=== PATIENT | female | born 1970 | race Caucasian/White ===

== ENCOUNTER 2018-02-22 10:37 | Emergency (ER) | payer MEDICAID ==
[~2018-02-22] VITALS: Ht 167.6 cm; Wt 100.1 kg
[2018-02-22 10:47] VITALS: BP 145/84; PULSE 88; RESP 16; TEMP 98.8; O2SAT 96
[2018-02-22] MEDS ORDERED: OMEP40CA2 PO (11:09)
[2018-02-22] MEDS ORDERED: AMIT10TA6 PO (11:09)
[2018-02-22] MEDS ORDERED: BENZ100 PO (12:06)
--- NOTE | 2018-02-22 12:11 | PD ---
HPI Chief Complaint: Cold / Flu Symptoms Time Seen by Provider: 11:38 Travel History International Travel<30 days: No Contact w/Intl Traveler<30days: No Traveled to known affect area: No History of Present Illness HPI 47-year-old female presents to the emergency room for evaluation of cold symptoms that started yesterday. Patient is on vacation from [place]. States she woke up with right ear pain, sore throat, cough, congestion, laryngitis, and body aches. Ear pain is the most severe. States she has fullness and decreased hearing but no drainage. She has not taken anything for her symptoms. No fever, chills, nausea, vomiting. She has history of hypertension. [facility] Past Medical History Asthma: Yes Anxiety: Yes GERD: Yes Respiratory: Yes (asthma) Tetanus Vaccination: > 5 Years Influenza Vaccination: Yes ?: Not LMP: 01/28/18 Past Surgical History Section: Yes Cholecystectomy: Yes Joint Replacement: Yes (KNEE) Tonsillectomy: Yes Social History Alcohol Use: Yes (rare) Tobacco Use: No Substance Use: No Allergies-Medications (Allergen,Severity, Reaction): Coded Allergies: acetaminophen (Verified Allergy, Severe, Itching, 02/22/18) hydrocodone (Verified Allergy, Severe, Itching, 02/22/18) Penicillins (Verified Allergy, Intermediate, skin rash, 02/22/18) Sulfa (Sulfonamide Antibiotics) (Verified Allergy, Intermediate, skin rash , 02/22/18) Reported Meds & Prescriptions Reported Meds & Active Scripts Active Tessalon Perles (Benzonatate) 100 Mg Cap 100 Mg PO TID PRN Reported Amitriptyline (Amitriptyline HCl) 10 Mg Tab Unknown Dose PO HS Omeprazole 40 Mg Cap 40 Mg PO DAILY Review of Systems Except as stated in HPI: all other systems reviewed are Neg Physical Exam Narrative GENERAL: Well-nourished, well-developed female no acute distress. Afebrile. Ambulatory. SKIN: Focused skin assessment warm/dry. HEAD: Normocephalic. EYES: No scleral icterus. No injection or drainage. ENT: Mucosa pink and moist. Mild erythema without edema or exudates. No uvular edema. No uvular, palatal, or tonsillar deviation. Airway patent. Nasal turbinates appear normal without nasal blood, purulent drainage or septal hematoma. EARS: Bilateral pinnae and external canals appear within normal limits. Bilateral tympanic membranes without erythema or perforation. Mild dullness of the right tympanic membrane. NECK: Supple, trachea midline. No JVD or lymphadenopathy. CARDIOVASCULAR: Regular rate and rhythm without murmurs, gallops, or rubs. RESPIRATORY: Breath sounds equal bilaterally. No accessory muscle use. No crackles, rales, wheezes, or rhonchi. Data Data Last Documented VS Vital Signs Date Time Temp Pulse Resp B/P (MAP) Pulse Ox O2 Delivery O2 Flow Rate FiO2 02/22/18 10:56 Room Air 02/22/18 10:47 98.8 88 16 145/84 (104) 96 MDM Medical Decision Making Medical Screen Exam Complete: Yes Emergency Medical Condition: Yes Medical Record Reviewed: Yes Differential Diagnosis Upper respiratory infection, viral syndrome, pneumonia, bronchitis Narrative Course 47-year-old female presents to the emergency room for evaluation of cold symptoms that started yesterday. No fevers. Physical exam is reassuring. Vital signs stable. No evidence of bacterial infection. Likely viral URI. Patient was reassured and told to continue [id number] medications. She will be discharged with prescription for Tessalon Perles. Told to follow-up with a primary care physician or return for worsening symptoms. She understands and agrees to plan. Diagnosis Primary Impression: Viral URI Referrals: Primary Care Physician Additional Instructions: Rest and drink plenty of fluids. Tessalon Perles as directed, as needed for cough. Intranasal phenylephrine for nasal congestion. Take ibuprofen with food as directed, as needed for pain. Follow-up with a primary care physician. Return to the emergency room for worsening symptoms. Med/Other Pt SpecificInfo: Prescription(s) given Scripts Benzonatate (Tessalon Perles) 100 Mg Cap 100 MG PO TID Y for COUGH, #15 CAP 0 Refills Prov: Rimma Miranda DO 02/22/18 Disposition: 01 DISCHARGE HOME Condition: Stable Camilla Barboza Feb 22, 2018 12:11
== END 2018-02-22 12:43 | disposition home or self-care (01) ==
LOC: PHEFT 10:37
DX: J06.9 Acute upper respiratory infection, unspecified (principal); I10 Essential (primary) hypertension; J45.909 Unspecified asthma, uncomplicated; F41.9 Anxiety disorder, unspecified; K21.9 Gastro-esophageal reflux disease without esophagitis
CPT/HCPCS: 99283